=== PATIENT | male | born 1995 | race African-American/Black ===

== ENCOUNTER 2023-10-22 12:46 | Emergency (ER) | payer MEDICAID, OTHER ==
[~2023-10-22] VITALS: Ht 175.3 cm; Wt 84.5 kg
[2023-10-22 13:03] VITALS: TEMP 99.6
[2023-10-22] MEDS: POVIDONE-IODINE 10% 15 ML SOLUTION UD TP ONE (13:56)
[2023-10-22] MEDS: LIDOCAINE 1%/EPI 1:200,000/PF 30 ML VIAL PERC ONE (13:56)
[2023-10-22] MEDS: CEPHALEXIN MONOHYDRATE 500 MG CAPSULE PO ONE (15:45)
[2023-10-22] MEDS: PERTUSS(ACELL),DIPH,TET VAC/PF 0.5 ML SYRINGE IM. ONE (15:45)
[2023-10-22] MEDS: DOXYCYCLINE HYCLATE 100 MG TABLET PO ONE (15:45)
[2023-10-22] MEDS: IBUPROFEN 600 MG TABLET PO ONE (15:45)
[2023-10-22] MEDS ORDERED: CEPH-558 PO (16:11)
[2023-10-22] MEDS ORDERED: DOXY-354 PO (16:12)
[2023-10-22 16:29] VITALS: BP 127/71; PULSE 72; RESP 16
== END 2023-10-22 16:34 | disposition home or self-care (01) ==
LOC: EMS 12:55
DX: L03.114 Cellulitis of left upper limb (principal); F12.90 Cannabis use, unspecified, uncomplicated
CPT/HCPCS: 99284; 10060; 90715; 93005; 90471; J3490

== ENCOUNTER 2023-10-25 16:22 | Emergency (ER) | payer OTHER ==
[~2023-10-25] VITALS: Ht 175.3 cm; Wt 82.0 kg
[~2023-10-25 16:22] MED LIST: CEPH-558 PO; DOXY-354 PO
[2023-10-25 16:41] VITALS: TEMP 99.1
[2023-10-25 17:30] VITALS: BP 120/70; PULSE 60; RESP 14
== END 2023-10-25 17:48 | disposition home or self-care (01) ==
LOC: EMS 16:23
DX: L02.412 Cutaneous abscess of left axilla (principal); F12.90 Cannabis use, unspecified, uncomplicated
CPT/HCPCS: 99281; Z7502

== ENCOUNTER 2025-04-01 10:17 | Emergency (ER) | payer MEDICAID, OTHER ==
[~2025-04-01] VITALS: Ht 177.8 cm; Wt 95.5 kg
[2025-04-01 10:22] VITALS: TEMP 98.1
[2025-04-01] MEDS: SULFAMETHOX/TRIMETH DS 800-160 MG/TABLET PO ONE (13:38)
[2025-04-01] MEDS: BACITRACIN 0.9 GM PACKET OINTMENT TP ONE (13:39)
[2025-04-01] MEDS: IBUPROFEN 600 MG TABLET PO ONE (13:39)
[2025-04-01] MEDS: LIDOCAINE 1% 10 ML VIAL SQ ONE (13:39)
[2025-04-01] MEDS: CEPHALEXIN MONOHYDRATE 500 MG CAPSULE PO ONE (13:40)
[2025-04-01 14:00] VITALS: BP 122/86; PULSE 84; RESP 16; O2SAT 98
[2025-04-01] MEDS ORDERED: SULF-261 PO (14:07)
[2025-04-01] MEDS ORDERED: IBUP-1492 PO (14:07)
[2025-04-01] MEDS ORDERED: CEPH-558 PO (14:07)
== END 2025-04-01 14:17 | disposition home or self-care (01) ==
LOC: EMS 10:19
DX: L02.412 Cutaneous abscess of left axilla (principal); F12.90 Cannabis use, unspecified, uncomplicated; Z79.899 Other long term (current) drug therapy
CPT/HCPCS: 99284; 10060; J3490

== ENCOUNTER 2025-04-03 12:38 | Emergency (ER) | payer OTHER ==
[~2025-04-03] VITALS: Ht 172.7 cm; Wt 95.5 kg
[~2025-04-03 12:38] MED LIST changes: +IBUP-1492 PO; +SULF-261 PO
[2025-04-03 12:39] VITALS: TEMP 98
[2025-04-03 13:43] VITALS: BP 124/78; PULSE 62; RESP 18; O2SAT 99
== END 2025-04-03 13:44 | disposition home or self-care (01) ==
LOC: EMS 13:43
DX: L02.412 Cutaneous abscess of left axilla (principal); F12.90 Cannabis use, unspecified, uncomplicated; Z79.899 Other long term (current) drug therapy
CPT/HCPCS: 99281; Z7502

== ENCOUNTER 2025-05-06 13:31 | Emergency (ER) | payer OTHER ==
[~2025-05-06] VITALS: Ht 170.2 cm; Wt 88.6 kg
[2025-05-06 14:00] VITALS: BP 130/90; PULSE 91; RESP 18; TEMP 98.6; O2SAT 97
[2025-05-06] MEDS ORDERED: ACET-2247 PO (15:17)
[2025-05-06] MEDS ORDERED: IBUP-1492 PO (15:17)
[2025-05-06] MEDS ORDERED: CEPH-558 PO (15:17)
== END 2025-05-06 15:50 | disposition home or self-care (01) ==
LOC: EMS 13:35
DX: L03.112 Cellulitis of left axilla (principal); F12.90 Cannabis use, unspecified, uncomplicated; Z79.899 Other long term (current) drug therapy
CPT/HCPCS: 99283; Z7502